=== PATIENT | female | born 1985 | race Caucasian/White ===

== ENCOUNTER 2017-08-28 22:34 | Emergency (ER) | payer BC ==
[~2017-08-28] VITALS: Ht 162.6 cm; Wt 55.8 kg
[~2017-08-28 22:34] MED LIST: KEFLEX500 MG ORAL; NKM; ONDANSETRON ODT4 MG ORAL
[2017-08-28 23:00] VITALS: BP 109/61
[2017-08-28 23:59] LABS: BASOPHILS % (AUTO) 0.5 % (0.0-2.0); EOSINOPHILS % (AUTO) 0.8 % (0.0-3.0); HEMATOCRIT 38.2 % (37.0-47.0); HEMOGLOBIN 13.5 G/DL (12.0-16.0); LYMPHOCYTES % (AUTO) 32.5 % (20.0-45.0); MEAN CORPUSCULAR VOLUME 87 FL (80-99); MONOCYTES % (AUTO) 4.8 % (1.0-10.0); NEUTROPHILS % (AUTO) 61.4 % (45.0-75.0); PLATELET COUNT 275 K/UL (150-450); RED BLOOD COUNT 4.41 M/UL (4.20-5.40); RED CELL DISTRIBUTION WIDTH 11.1 % (11.6-14.8); WHITE BLOOD COUNT 7.1 K/UL (4.8-10.8)
[2017-08-29 00:07] LABS: ANION GAP 7 mmol/L (5-15); BLOOD UREA NITROGEN 14 mg/dL (7-18); CALCIUM 9.1 MG/DL (8.5-10.1); CARBON DIOXIDE 28 MMOL/L (21-32); CHLORIDE 103 MMOL/L (98-107); CREATININE 0.8 MG/DL (0.55-1.30); SODIUM 138 MMOL/L (136-145)
[2017-08-29 00:11] LABS: ALANINE AMINOTRANSFERASE 27 U/L (12-78); ALBUMIN/GLOBULIN RATIO 1.2 (1.0-2.7); ALKALINE PHOSPHATASE 99 U/L (46-116); ASPARTATE AMINO TRANSFERASE 25 U/L (15-37); BILIRUBIN,TOTAL 0.3 MG/DL (0.2-1.0)
[2017-08-29] MEDS ORDERED: ZOFRAN ODT4 MG ORAL (00:31)
--- NOTE | 2017-08-29 00:31 | Emergency Room Report ---
History of Present Illness General Chief Complaint: Vomiting Source: Patient Present Illness HPI This is a 31-year-old female with no significant past medical history. She had a couple of alcohol today and since his been vomiting nonstop for the last 4 hours. Vomiting is nonbloody nonbilious. She felt dehydrated. She felt something stuck in her throat. No fever or chills but no diarrhea. Allergies: Coded Allergies: No Known Allergies (Unverified , 08/28/17) Patient History Past Medical History: see triage record, old chart reviewed Past Surgical History: none Pertinent Family History: none Social History: Denies: smoking Last Menstrual Period: a year and ahalf ago Now: No - unknown : 2 Immunizations: other Reviewed Nursing Documentation: PMH: Agreed, PSxH: Agreed Nursing Documentation-PMH Past Medical History: No Stated History Review of Systems Eye: Denies: eye pain, blurred vision ENT: Denies: ear pain, nose congestion, throat swelling Respiratory: Denies: cough, shortness of breath Cardiovascular: Denies: chest pain, palpitations Gastrointestinal: Reports: nausea, vomiting, Denies: abdominal pain, diarrhea Musculoskeletal: Denies: back pain, joint pain Skin: Denies: rash Neurological: Denies: headache, numbness Endocrine: Denies: increased thirst, increased urine Hematologic/Lymphatic: Denies: easy bruising All Other Systems: negative except mentioned in HPI Physical Exam Vital Signs Date Time Temp Pulse Resp B/P (MAP) Pulse Ox O2 Delivery O2 Flow Rate FiO2 08/28/17 22:48 97.7 84 18 109/61 98 Room Air 97.7 vitals normal Sp02 EP Interpretation: reviewed, normal General Appearance: well appearing, no apparent distress, alert Head: normocephalic, atraumatic Eyes: bilateral eye PERRL, bilateral eye EOMI ENT: hearing grossly normal, normal pharynx Neck: full range of motion, supple, no meningismus Respiratory: chest non-tender, lungs clear, normal breath sounds Cardiovascular #1: regular rate, rhythm, no murmur Gastrointestinal: normal bowel sounds, non tender, no mass, no organomegaly, no bruit, non-distended Musculoskeletal: back normal, gait/station normal, normal range of motion Psychiatric: mood/affect normal Skin: warm/dry Medical Decision Making Diagnostic Impression: Primary Impression: Vomiting Qualified Codes: R11.2 - Nausea with vomiting, unspecified ER Course Patient with nausea and vomiting. Better now. Labs unremarkable. Abdomen exam is soft. No evidence of acute abdomen or obstruction. We'll discharge home. Lab Results Impression labs unremarkable Last Vital Signs Date Time Temp Pulse Resp B/P (MAP) Pulse Ox O2 Delivery O2 Flow Rate FiO2 08/28/17 22:48 97.7 84 18 109/61 98 Room Air 97.7 Status: improved Disposition: HOME, SELF-CARE Condition: Stable Scripts Ondansetron Odt* (ZOFRAN ODT*) 4 Mg Tab.rapdis 4 MG ORAL Q6H Y for Nausea & Vomiting, #10 TAB 0 Refills Prov: YESI ZUNIGA M.D. 08/29/17 Patient Instructions: Nausea and Vomiting, Adult Additional Instructions: Follow-up with your DrCamila in one to 2 days and not better. Return if symptom worsen. Advance diet as tolerated. YESI ZUNIGA M.D. Aug 29, 2017 00:31
[2017-08-29 00:40] VITALS: BP 109/61
== END 2017-08-29 00:45 | disposition home or self-care (01) ==
LOC: EMR 08-29 00:41 → MERGE 08-29 00:41 → EMR 08-29 00:45
DX: R11.2 Nausea with vomiting, unspecified (principal)
CPT/HCPCS: 36415; 80053; 83690; 85025; 96374; 96375; 99284; J2405; 96361